=== PATIENT | male | born 1995 | race Two or more races ===

== ENCOUNTER 2023-08-24 22:48 | Emergency (ER) | payer OTHER ==
[~2023-08-24] VITALS: Ht 172.7 cm; Wt 86.2 kg
[2023-08-24] MEDS ORDERED: XANAX0.25 MG (23:09)
[2023-08-25] MEDS ORDERED: LORazepam 2 MG/ML VIAL IV PUSH STA (00:03)
[2023-08-25] MEDS ORDERED: FAMOTIDINE/PF 20 MG/2 ML VIAL IV PUSH STA (00:04)
[2023-08-25] MEDS ORDERED: HALOPERIDOL LACTATE 5 MG/ML AMPUL IM ONE (00:15)
[2023-08-25 00:28] LABS: HEMATOCRIT 47.7 % (39.0-48.0); HEMOGLOBIN 16.9 g/dL (13-16.00); MEAN CELL VOLUME 90.7 fL (80.0-100.00); MEAN CORPUSCULAR HEMOGLOBIN 32.1 pg (27.00-32.0); MEAN CORPUSCULAR HGB CONC 35.3 g/dl (32.0-36.0); PLATELET COUNT 302 K/uL (150-450); RED BLOOD COUNT 5.26 M/uL (4.00-6.00); RED CELL DISTRIBUTION WIDTH 12.7 % (11.5-14.5)
[2023-08-25 00:45] LABS: URINE APPEARANCE Clear; URINE BILIRRUBIN Negative (NEGATIVE); URINE BLOOD Small; URINE COLOR Yellow; URINE GLUCOSE Negative (NEGATIVE); URINE LEUKOCYTE Negative; URINE NITRATE Negative
[2023-08-25 00:52] LABS: URINE BACTERIA 1.2 uL (0.0-1933); URINE EPITHELIAL CELLS 0.7 uL (0.0-38.8); URINE PROTEIN 100 (NEGATIVE); URINE WBC 1.5 uL (0.0-23.2)
[2023-08-25 00:55] LABS: COCAINE NEGATIVE (NEGATIVE); METHADONE NEGATIVE (NEGATIVE); OPIATES NEGATIVE (NEGATIVE); THC ( Cannabinoids) NEGATIVE (NEGATIVE)
[2023-08-25 01:02] LABS: ALBUMIN 4.6 gm/dL (3.4-5.0); BILIRUBIN TOTAL 0.68 mg/dL (0.3-1.2); BILIRUBIN,CONJUGATED 0.22 mg/dL (0.0-0.2); BILIRUBIN,UNCONJUGATED 0.46 mg/dL (0.0-0.6); CALCIUM 9.6 mg/dL (8.5-10.1); CREATININE SERUM 1.08 mg/dL (0.70-1.30); GFR 83.31; GLOBULINA 3.5 G/DL (2.4-3.5); POTASSIUM 3.73 mEq/L (3.5-5.1); TOTAL PROTEIN 8.1 gm/dL (6.4-8.2)
[2023-08-25] MEDS ORDERED: LORazepam 0.5 MG TABLET PO STA ×2 (03:56→04:25)
[2023-08-25] MEDS ORDERED: HYOSCYAMINE SULFATE 0.125 MG TAB.SUBL SL ONE (04:00)
[2023-08-25] MEDS ORDERED: ONDANSETRON ODT8 MG PO (05:40)
[2023-08-25] MEDS ORDERED: ATIVAN1 M1 PO (05:40)
== END 2023-08-25 05:48 | disposition home or self-care (01) ==
LOC: ER 22:48
PROVIDERS: Emergency Medicine
DX: F10.929 Alcohol use, unspecified with intoxication, unspecified (principal)